=== PATIENT | male | born 2000 | race Caucasian/White ===

== ENCOUNTER 2024-05-06 20:31 | Observation (INO) | payer BC, MEDICARE ==
[2024-05-06] MEDS ORDERED: MORPHINE 4 MG/ML SYR IV PRN (20:47)
[2024-05-06] MEDS ORDERED: PROMETHAZINE INJ 25 MG/ML AMP IV PRN (20:47)
[2024-05-06] MEDS ORDERED: ONDANSETRON 4 MG/2 ML VIAL IV PRN (20:48)
[2024-05-06 21:16] VITALS: BMI 27.2
[2024-05-06] MEDS: D5.45NS W/KCL 20MEQ 20 MEQ/1,000 ML BAG IV SCH (22:14)
[2024-05-07] MEDS: PIPER TAZO 3.375 GM in NA CHLORIDE 0.9% 100 ML IV SCH (00:31)
[2024-05-07] MEDS: Ringers Lactate 1,000 ML IV ONE (13:24)
[2024-05-07] MEDS ORDERED: KETOROLAC 30 MG/ML INJ ONE (13:58)
[2024-05-07] MEDS ORDERED: FENTANYL CITR 100 MCG/2 ML ONE (13:58)
[2024-05-07] MEDS ORDERED: LIDOCAINE 1% MPF 5 ML VIAL ONE (13:58)
[2024-05-07] MEDS ORDERED: MIDAZOLAM HCL 2 MG/2 ML INJ ONE (13:58)
[2024-05-07] MEDS ORDERED: ONDANSETRON 4 MG/2 ML VIAL ONE (13:58)
[2024-05-07] MEDS ORDERED: propofoL 200 MG/20 ML VIAL IV ONE (13:58)
[2024-05-07] MEDS ORDERED: ROCURONIUM 50 MG/5 ML VIAL IV ONE (13:59)
--- NOTE | 2024-05-07 13:59 | P.HP ---
Date of Service: 05/07/24 PC: This patient was transferred from another facility without surgical capabilities for acute appendicitis. HPC: The patient initial presentation to an outpatient ER was because he was having severe abdominal pain. Says it began in the upper portion of his abdomen, but seem to migrate downwards during the day. Making him very unc omfortable. No nausea or vomiting. PSHx: Surgery as a baby on his parotid gland PMHx: Negative Social Hx: Allergic to codeine Sys R: No cough, wheeze, shortness of breath. No chest pain or palpitations. No urinary complaints. 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 The risks of this procedure have been discussed. The possibility of bleeding, infection, injury to bowel blood vessels and surrounding structures was outlined. The possible need for an open end or further surgeries and procedures was discussed. He understands and wants to proceed.
[2024-05-07] MEDS: BUPIVACA 0.5%/EPI 0.0005%/PF 30 ML VIAL SQ ONE ×3 (14:01→14:40)
[2024-05-07] MEDS ORDERED: GLYCOPYRROLATE 0.2 MG/ML SYR ONE (14:47)
--- NOTE | 2024-05-07 15:07 | P.OP ---
Preoperative diagnosis: Acute abdomen with appendicitis Postoperative diagnosis: Same Primary procedure: Laparoscopic appendectomy Anesthesia: General Estimated blood loss: Less than 10 cc Specimen: 1 appendix Operative Technique: The patient brought the operating room and placed supine on the table. After the induction of adequate general endotracheal anesthesia, the area of the abdomen was prepped with DuraPrep solution, and he was draped in the usual aseptic manner. A subumbilical incision was made. This was brought down through the skin and subcutaneous tissue. The Visiport was used to enter the peritoneal cavity and created pneumoperitoneum to approximately 12 mmHg. Under direct vision a 5 mm trocar was placed in the lower midline between the umbilicus and the pubic symphysis, and another on the right lateral side of the abdomen. Attention was turned towards the right lower quadrant. We could see an acutely inflamed appendix just along the right lateral sidewall of the abdomen. A gr asper was placed on the appendix and applying gentle traction we are able to identify and see up closely the junction of the cecum with the appendix. A window was made in the mesentery of the appendix at this point. A 12 mm trocar was now exchanged for the trocar at the umbilicus. Through this we were able to place our linear stapler. This was placed across the base of the appendix and fired. A vascular reload was used to take down the mesentery of the appendix. This having been done the instrument was fired. The specimen was now placed into an Endo Catch and brought out through the umbilical trocar site. Attention was turned back towards the right lower quadrant. The operative site was gently irrigated with a saline solution. The effluent was aspirated from the peritoneal cavity. Attention was turned back towards the umbilicus. The umbilical trocar site was approximated using a Endo Close and nonabsorbable suture. At this point the trocars were removed, the pneumoperitoneum collapsed, and the suture tied. Tamear were then applied to the skin. At the end of the procedure he was in a stable condition was sent to the recovery room. Needle sponge instrument count were correct. No drains were placed. Complications: None Transferred to: Recovery Room Condition: Good
[2024-05-07 15:16] VITALS: O2SAT 100
[2024-05-07] MEDS: HYDROMORPHONE HCL 1 MG/ML INJ ONE (15:31)
[2024-05-07] MEDS: HYDROMORPHONE HCL 1 MG/ML INJ IV ONE ×2 (15:32→15:40)
[2024-05-07 17:10] VITALS: TEMP 97.6
[2024-05-07] MEDS: IBUPROFEN 400 MG TAB PO PRN (20:02)
[2024-05-07 20:35] VITALS: BP 124/62
== END 2024-05-07 20:30 | disposition home or self-care (01) ==
LOC: 4TH 20:31
PROVIDERS: ADMIT Surgery; ATTEND Surgery
PROC: 0DTJ4ZZ Resection of Appendix, Percutaneous Endoscopic Approach (ICD-10-PCS; principal; 2024-05-06)
DX: K35.80 Unspecified acute appendicitis (principal); R10.0 Acute abdomen; Z88.5 Allergy status to narcotic agent
CPT/HCPCS: 88304; 94010; J1170; J2001; J2250; J2405; J2543; J2704; J3010; J7120